=== PATIENT | female | born 1965 | race Two or more races ===

== ENCOUNTER 2020-11-07 09:37 | Emergency (ER) | payer OTHER ==
[~2020-11-07] VITALS: Ht 157.5 cm; Wt 66.0 kg
--- NOTE | 2020-11-07 09:45 | NUR ---
PT AMBULATES WELL INDEPENDENTLY TO BATHROOM.
--- NOTE | 2020-11-07 10:02 | NUR ---
PT RECLINED IN [facility], CHANGED INTO GOWN, BLANKET NEXT TO PT. PT RESPIRATIONS EVEN AND UNLABORED ON RA. NAD NOTED AT THIS TIME. PT USING CELL PHONE TO TALK WITH BOYFRIEND. LABS COLLECTED, UA COLLECTED AND WALKED TO LAB. CURRENTLY AWAITING US. RAILS UP, CALL LIGHT IN REACH, DOOR CLOSED FOR PRIVACY.
[2020-11-07 10:06] LABS: BASOPHILS % (AUTO) 1 % (0-1); EOSINOPHILS % (AUTO) 2 % (1-7); LYMPHOCYTES % (AUTO) 40 % (22-44); MEAN CORPUSCULAR HEMOGLOBIN 30.8 pg (27.0-34.8); MEAN CORPUSCULAR HGB CONC 33.1 g/dL (32.4-35.8); MEAN PLATELET VOLUME 9.2 fL (7.4-10.4); MONOCYTES % (AUTO) 6 % (2-9); NEUTROPHILS % (AUTO) 51 % (42-75); PLATELET COUNT 219 x10^3/uL (130-400); RED BLOOD COUNT 4.44 x10^6/uL (3.82-5.3); RED CELL DISTRIBUTION WIDTH 13.1 % (9.6-15.2)
[2020-11-07 10:11] LABS: MD NO
[2020-11-07 10:17] LABS: ALANINE AMINOTRANSFERASE 26 U/L (12-78); ALBUMIN 4.1 g/dL (3.4-5.0); ANION GAP 6 mmol/L (5-15); CALCIUM 9.1 mg/dL (8.5-10.1); CHLORIDE 109 mmol/L (98-107)
[2020-11-07 10:18] LABS: MICROSCOPIC NOT IND
[2020-11-07 10:20] LABS: ALKALINE PHOSPHATASE 96 U/L (45-117); BILIRUBIN,TOTAL 0.7 mg/dL (0.2-1.0); CREATININE 0.55 mg/dL (0.55-1.02); TOTAL PROTEIN 8.1 g/dL (6.4-8.2)
--- NOTE | 2020-11-07 10:36 | NUR ---
US COMPLETED. BLANKET APPLIED FOR PT COMFORT. HOB TO LEVEL OF COMFORT. LIGHTS DIMMED. SIDE RAIL UP, CALL LIGHT IN REACH. AWAITING RESULTS.
--- NOTE | 2020-11-07 10:53 | NUR ---
PT UP FOR RECHECK.
[2020-11-07] MEDS ORDERED: ACETAMINOPHEN 325 MG TABLET ONE (11:18)
[2020-11-07] MEDS ORDERED: ACETAMINOPHEN 325 MG TABLET PO ONE (11:30)
[2020-11-07 11:44] VITALS: BP 134/72
== END 2020-11-07 11:46 | disposition home or self-care (01) ==
LOC: ED 11:30
DX: K80.20 Calculus of gallbladder without cholecystitis without obstruction (principal)
CPT/HCPCS: 36415; 76700; 80053; 81003; 83690; 85025; 99285